=== PATIENT | male | born 1945 | race Caucasian/White ===

== ENCOUNTER 2016-09-09 19:43 | Inpatient (IN) | payer MEDICARE ==
[~2016-09-09] VITALS: Ht 185.4 cm; Wt 113.2 kg
[~2016-09-09 19:43] MED LIST: ASPI-650 PO; CIPR500T87 PO; LOSA50TA6 PO; MULT-208 PO; OXYC-302 PO; SULF1TAB23 PO
[2016-09-09] MEDS ORDERED: ONDANSETRON 2MG/ML, 2ML IVPush ONE (20:30)
[2016-09-09] MEDS ORDERED: SODIUM CHLORIDE 0.9% 1,000ML IVBOLUS ONE (20:30)
[2016-09-09] MEDS ORDERED: PANTOPRAZOLE 40 MG IV IVP ONE (20:30)
[2016-09-09] MEDS ORDERED: LORazepam 2 MG/ML, 1ML IVPush ONE (20:30)
[2016-09-09] MEDS ORDERED: MORPHINE SULFATE 4 MG/ML, 1ML IVPush PRN (20:30)
[2016-09-09] MEDS ORDERED: PANTOPRAZOLE 40 MG IV ONE (20:47)
[2016-09-09] MEDS ORDERED: ONDANSETRON 2MG/ML, 2ML ONE (20:47)
[2016-09-09] MEDS ORDERED: LORazepam 2 MG/ML, 1ML ONE (20:47)
[2016-09-09] MEDS ORDERED: MORPHINE SULFATE 4 MG/ML, 1ML ONE (20:57)
[2016-09-09 20:59] LABS: ASPARTATE AMINO TRANSFERASE 99 U/L (15-37); BLOOD UREA NITROGEN 24 mg/dL (7-18)
[2016-09-09 21:04] LABS: IS PT STATUS REG ER OR PRE ER? YES
[2016-09-09] MEDS ORDERED: D5%-0.45% NACL 1,000 ML IV ONE (21:30)
[2016-09-09] MEDS ORDERED: OMNIPAQUE 350 MG/ML, 100ML BOTTLE ONE (21:52)
[2016-09-09] MEDS: ENOXAPARIN 40 MG/0.4 ML SQ SCH (23:00)
[2016-09-09] MEDS ORDERED: THIAMINE 200 MG in SODIUM CHLORIDE 0.9% 50 ML IV ONE (23:00)
[2016-09-09] MEDS ORDERED: FAMOTIDINE 20 MG/2 ML IVPush SCH (23:00)
[2016-09-09] MEDS ORDERED: ONDANSETRON 2MG/ML, 2ML IVPush PRN (23:00)
[2016-09-10] MEDS ORDERED: MORPHINE SULFATE 4 MG/ML, 1ML IVPush PRN
[2016-09-10] MEDS: PROMETHAZINE 25 MG/ML, 1ML IM PRN ×2 (00:06→06:00)
[2016-09-10 00:14] VITALS: BP 137/86
[2016-09-10 02:05] VITALS: BP 137/77
[2016-09-10] MEDS: ONDANSETRON 2MG/ML, 2ML IVPush PRN ×3 (04:13→21:57)
[2016-09-10] MEDS: MORPHINE SULFATE 4 MG/ML, 1ML IVPush PRN ×4 (04:14→18:16)
[2016-09-10 05:35] LABS: BLOOD UREA NITROGEN 22 mg/dL (7-18)
[2016-09-10 05:38] LABS: ASPARTATE AMINO TRANSFERASE 338 U/L (15-37)
[2016-09-10] MEDS: POTASSIUM CHLORIDE 20 MEQ, MAGNESIUM SULFATE 2 GM, THIAMINE 100 MG, MVI ADULT 10 ML, FO... IV SCH (07:54)
[2016-09-10 08:15] VITALS: BP 122/75
[2016-09-10] MEDS: CYANOCOBALAMIN 1,000 MCG TABLET PO SCH (09:20)
[2016-09-10] MEDS: PANTOPRAZOLE 40 MG IV IVPush SCH ×2 (09:20→21:59)
[2016-09-10] MEDS: SUCRALFATE 1 GM/10 ML UDC PO SCH ×4 (09:20→21:59)
[2016-09-10] MEDS ORDERED: OMNIPAQUE 350 MG/ML, 100ML BOTTLE ONE (13:55)
[2016-09-10 14:01] VITALS: BP 138/82
[2016-09-10 18:27] VITALS: BP 128/79
[2016-09-10] MEDS: NS + 20MEQ KCL 1,000 ML IV SCH (22:00)
[2016-09-10] MEDS: ENOXAPARIN 40 MG/0.4 ML SQ SCH (22:04)
[2016-09-10] MEDS: LORazepam 2 MG/ML, 1ML IVPush PRN (22:04)
[2016-09-11] MEDS: MORPHINE SULFATE 4 MG/ML, 1ML IVPush PRN ×3 (00:02→10:49)
[2016-09-11 01:36] VITALS: BP 121/77
[2016-09-11] MEDS: LORazepam 2 MG/ML, 1ML IVPush PRN ×4 (02:23→22:28)
[2016-09-11 04:45] LABS: BLOOD UREA NITROGEN 22 mg/dL (7-18)
[2016-09-11 05:14] LABS: ASPARTATE AMINO TRANSFERASE 378 U/L (15-37)
[2016-09-11 05:17] LABS: ACETAMINOPHEN < 2 mcg/mL (10-30)
[2016-09-11] MEDS: ONDANSETRON 2MG/ML, 2ML IVPush PRN ×4 (06:32→22:28)
[2016-09-11] MEDS: SUCRALFATE 1 GM/10 ML UDC PO SCH ×4 (07:00→22:28)
[2016-09-11 08:26] VITALS: BP 118/74
[2016-09-11] MEDS: PANTOPRAZOLE 40 MG IV IVPush SCH ×2 (08:30→22:28)
[2016-09-11] MEDS: CYANOCOBALAMIN 1,000 MCG TABLET PO SCH (09:00)
[2016-09-11] MEDS: POTASSIUM CHLORIDE 20 MEQ, MAGNESIUM SULFATE 2 GM, THIAMINE 100 MG, MVI ADULT 10 ML, FO... IV SCH (10:49)
[2016-09-11] MEDS ORDERED: ONDANSETRON 2MG/ML, 2ML IVPush PRN (14:30)
[2016-09-11] MEDS ORDERED: OXYcodone 5 MG/5 ML ORAL.SOL UDC PO PRN (14:30)
[2016-09-11] MEDS ORDERED: FENTANYL PF 100 MCG/2ML IV PRN (14:30)
[2016-09-11] MEDS ORDERED: morphine SULFATE 10 MG/ML, 1ML IV PRN (14:30)
[2016-09-11] MEDS ORDERED: PROMETHAZINE 25 MG/ML, 1ML IV PRN (14:30)
[2016-09-11] MEDS ORDERED: MIDAZOLAM 1 MG/ML, 2ML IV PRN (14:30)
[2016-09-11] MEDS ORDERED: hydrALAzine 20 MG/ML, 1ML IV PRN (14:30)
[2016-09-11] MEDS ORDERED: LABETALOL 5MG/ML, 20ML IV PRN (14:30)
[2016-09-11] MEDS ORDERED: ALBUTEROL/IPRATROPIUM 2.5MG/0.5MG, 3 ML NPPB PRN (14:30)
[2016-09-11 14:36] VITALS: BP 154/94
[2016-09-11 18:35] VITALS: BP 110/70
[2016-09-11] MEDS: NS + 20MEQ KCL 1,000 ML IV SCH (21:00)
[2016-09-11 22:07] VITALS: BP 96/65
[2016-09-11 22:37] VITALS: BP 98/65
[2016-09-12 05:16] LABS: ASPARTATE AMINO TRANSFERASE 122 U/L (15-37); BLOOD UREA NITROGEN 26 mg/dL (7-18)
[2016-09-12] MEDS: SUCRALFATE 1 GM/10 ML UDC PO SCH ×4 (07:00→21:09)
[2016-09-12] MEDS ORDERED: PANT40TA3 PO (07:48)
[2016-09-12] MEDS ORDERED: LORA-446 PO (07:48)
[2016-09-12] MEDS ORDERED: ONDA4TAB10 PO (07:48)
[2016-09-12 08:25] VITALS: BP 121/68
[2016-09-12] MEDS: CYANOCOBALAMIN 1,000 MCG TABLET PO SCH (09:00)
[2016-09-12 09:14] LABS: HEPATITIS C VIRUS ANTIBODY Nonreactive (Nonreactive)
[2016-09-12] MEDS: LORazepam 2 MG/ML, 1ML IVPush PRN ×3 (11:07→21:11)
[2016-09-12] MEDS: PANTOPRAZOLE 40 MG IV IVPush SCH ×2 (11:07→21:09)
[2016-09-12] MEDS: ONDANSETRON 2MG/ML, 2ML IVPush PRN ×3 (11:07→21:10)
[2016-09-12] MEDS: POTASSIUM CHLORIDE 20 MEQ, MAGNESIUM SULFATE 2 GM, THIAMINE 100 MG, MVI ADULT 10 ML, FO... IV SCH (12:00)
[2016-09-12] MEDS ORDERED: FENTANYL PF 100 MCG/2ML ONE (13:07)
[2016-09-12] MEDS ORDERED: EPINEPHRINE SYRINGE 0.1 MG/ML, 10ML ONE (13:16)
[2016-09-12] MEDS ORDERED: ONDANSETRON 2MG/ML, 2ML IVPush PRN (13:30)
[2016-09-12] MEDS ORDERED: ONDANSETRON 2MG/ML, 2ML ONE (13:32)
[2016-09-12] MEDS ORDERED: FENTANYL PF 100 MCG/2ML IV PRN (14:00)
[2016-09-12 14:51] VITALS: BP 124/72
[2016-09-12] MEDS ORDERED: PROPOFOL 10 MG/ML, 20ML ONE (15:11)
[2016-09-12] MEDS: NS + 20MEQ KCL 1,000 ML IV SCH (20:00)
[2016-09-12 21:06] VITALS: BP 111/73
[2016-09-12 23:56] LABS: PATH.CAST-FLAG NOT PRESENT; SPERM-FLAG NOT PRESENT; SRC-FLAG NOT PRESENT; XTAL-FLAG NOT PRESENT; YLC-FLAG NOT PRESENT
[2016-09-13] VITALS (8 sets, daily range): BP systolic 112–138; BP diastolic 72–76
[2016-09-13] MEDS: MORPHINE SULFATE 4 MG/ML, 1ML IVPush PRN (04:17)
[2016-09-13] MEDS: ONDANSETRON 2MG/ML, 2ML IVPush PRN ×2 (04:36→10:19)
[2016-09-13] MEDS: LORazepam 2 MG/ML, 1ML IVPush PRN (04:37)
[2016-09-13 05:32] LABS: ASPARTATE AMINO TRANSFERASE 58 U/L (15-37); BLOOD UREA NITROGEN 18 mg/dL (7-18)
[2016-09-13] MEDS: CYANOCOBALAMIN 1,000 MCG TABLET PO SCH (08:51)
[2016-09-13] MEDS: NS + 20MEQ KCL 1,000 ML IV SCH (08:51)
[2016-09-13] MEDS: PANTOPRAZOLE 40 MG IV IVPush SCH (08:51)
[2016-09-13] MEDS: SUCRALFATE 1 GM/10 ML UDC PO SCH (08:51)
[2016-09-13] MEDS ORDERED: CEFD300C37 PO (09:21)
== END 2016-09-13 10:38 | disposition home or self-care (01) | DRG 344 ==
LOC: ED 22:46 → EDIP 22:50 → 4NOR 23:27 → 4WST 09-10 05:37
PROVIDERS: ADMIT Internal Medicine
PROC: 0W3P8ZZ Control Bleeding in Gastrointestinal Tract, Via Natural or Artificial Opening Endoscopic (ICD-10-PCS; principal; 2016-09-11 14:00)
PROC: 0D5A8ZZ Destruction of Jejunum, Via Natural or Artificial Opening Endoscopic (ICD-10-PCS; 2016-09-12)
PROC: 0D568ZZ Destruction of Stomach, Via Natural or Artificial Opening Endoscopic (ICD-10-PCS; 2016-09-12)
DX: K28.0 Acute gastrojejunal ulcer with hemorrhage (principal); E43 Unspecified severe protein-calorie malnutrition; K85.20 Alcohol induced acute pancreatitis without necrosis or infection; E87.2 Acidosis; I45.2 Bifascicular block; F10.229 Alcohol dependence with intoxication, unspecified; D18.03 Hemangioma of intra-abdominal structures; D53.9 Nutritional anemia, unspecified; D69.6 Thrombocytopenia, unspecified; D75.89 Other specified diseases of blood and blood-forming organs; Z68.32 Body mass index [BMI] 32.0-32.9, adult; E53.8 Deficiency of other specified B group vitamins; E86.0 Dehydration; I10 Essential (primary) hypertension; I77.819 Aortic ectasia, unspecified site; K20.9 Esophagitis, unspecified; K27.4 Chronic or unspecified peptic ulcer, site unspecified, with hemorrhage; K52.9 Noninfective gastroenteritis and colitis, unspecified; K70.10 Alcoholic hepatitis without ascites; Z82.49 Family history of ischemic heart disease and other diseases of the circulatory system; Z83.3 Family history of diabetes mellitus; Z85.828 Personal history of other malignant neoplasm of skin; Z96.659 Presence of unspecified artificial knee joint; Z98.84 Bariatric surgery status; R31.0 Gross hematuria; I85.10 Secondary esophageal varices without bleeding
CPT/HCPCS: 36415; 74170; 74177; 76770; 80053; 80074; 80307; 81001; 81003; 82010; 82105; 82140; 82607; 82746; 83690; 83735; 84100; 84443; 84484; 85014; 85018; 85025; 85610; 86677; 86850; 86900; 86923; 87077; 87086; 93005; 96361; 96374; 96375; B4087; J2405; J2550; J2704; J3010; J3411; J3475; J3480; J7042; Q9967; C9113; J2060; J7030; P9016

== ENCOUNTER 2016-09-14 02:56 | Inpatient (IN) | payer MEDICARE ==
[2016-09-14] VITALS (17 sets, daily range): BP systolic 100–154; BP diastolic 54–138
[~2016-09-14] VITALS: Ht 185.4 cm; Wt 109.3 kg
[~2016-09-14 02:56] MED LIST changes: +CEFD300C37 PO; +LORA-446 PO; +ONDA4TAB10 PO; +PANT40TA3 PO
[2016-09-14] MEDS ORDERED: PANTOPRAZOLE 80 MG in SODIUM CHLORIDE 0.9% 50 ML IVPB ONE (03:26)
[2016-09-14] MEDS ORDERED: SODIUM CHLORIDE 0.9% 1,000ML IVBOLUS ONE (03:30)
[2016-09-14 03:56] LABS: ASPARTATE AMINO TRANSFERASE 38 U/L (15-37); BLOOD UREA NITROGEN 19 mg/dL (7-18)
[2016-09-14 04:10] LABS: IS PT STATUS REG ER OR PRE ER? YES
[2016-09-14] MEDS ORDERED: PROMETHAZINE 25 MG/ML, 1ML IM PRN (05:00)
[2016-09-14] MEDS ORDERED: ONDANSETRON 2MG/ML, 2ML IVPush PRN ×3 (05:00→11:00)
[2016-09-14] MEDS ORDERED: SODIUM CHLORIDE 0.9% 1,000 ML IV SCH (05:11)
[2016-09-14] MEDS ORDERED: TRAZODONE 50MG TABLET PO PRN (05:30)
[2016-09-14] MEDS ORDERED: BISACODYL 10 MG SUPP PR PRN (05:30)
[2016-09-14] MEDS ORDERED: LABETALOL 5MG/ML, 20ML IVPush PRN ×2 (05:30→18:56)
[2016-09-14] MEDS ORDERED: DOCUSATE 100 MG CAPSULE PO PRN (05:30)
[2016-09-14] MEDS ORDERED: ACETAMINOPHEN 325 MG TABLET PO PRN (05:30)
[2016-09-14] MEDS ORDERED: POLYETHYLENE GLYCOL 17 GM PACKET PO PRN (05:30)
[2016-09-14] MEDS: THIAMINE 100MG TABLET PO SCH (08:16)
[2016-09-14] MEDS: FOLIC ACID 1 MG TABLET PO SCH (08:16)
[2016-09-14] MEDS: ONDANSETRON 2MG/ML, 2ML IVPush PRN ×3 (08:29→21:59)
[2016-09-14] MEDS ORDERED: PANTOPRAZOLE 40 MG IV IVPush SCH ×2 (09:00→13:30)
[2016-09-14] MEDS ORDERED: LABETALOL 5MG/ML, 20ML IV PRN ×2 (10:30→11:00)
[2016-09-14] MEDS ORDERED: PROMETHAZINE 25 MG/ML, 1ML IV PRN ×2 (10:30→11:00)
[2016-09-14] MEDS ORDERED: EPHEDRINE 50 MG/ML, 1ML IVPush PRN ×2 (10:30→11:00)
[2016-09-14] MEDS ORDERED: FENTANYL PF 100 MCG/2ML IV PRN ×2 (10:30→11:00)
[2016-09-14] MEDS ORDERED: hydrALAzine 20 MG/ML, 1ML IV PRN ×2 (10:30→11:00)
[2016-09-14] MEDS ORDERED: HYDROmorphone 1 MG/ML, 1ML IV PRN (11:00)
[2016-09-14] MEDS ORDERED: PROMETHAZINE 25 MG/ML, 1ML ONE (11:21)
[2016-09-14] MEDS ORDERED: HYDROmorphone 1 MG/ML, 1ML ONE (11:46)
[2016-09-14] MEDS: HYDROmorphone 1 MG/ML, 1ML IV PRN ×2 (11:48→12:03)
[2016-09-14] MEDS ORDERED: ONDANSETRON 2MG/ML, 2ML ONE (12:01)
[2016-09-14] MEDS ORDERED: EPINEPHRINE SYRINGE 0.1 MG/ML, 10ML ONE (12:04)
[2016-09-14] MEDS ORDERED: FENTANYL PF 100 MCG/2ML ONE (12:11)
[2016-09-14] MEDS ORDERED: PANTOPRAZOLE 40 MG IV IVPush ONE (14:00)
[2016-09-14 14:01] LABS: DIFF TOTAL CELLS COUNTED 100 CELL DIFF
[2016-09-14 14:04] LABS: VERIFY COUNTS? YES
[2016-09-14 14:05] LABS: ANISOCYTOSIS 1+; OVALOCYTES 1+
[2016-09-14 14:06] LABS: POLYCHROMASIA 1+
[2016-09-14] MEDS ORDERED: PROPOFOL 10 MG/ML, 50ML ONE (16:57)
[2016-09-14] MEDS ORDERED: PHENYLEPHRINE 10 MG/ML ONE (16:57)
[2016-09-14] MEDS: morphine SULFATE 10 MG/ML, 1ML IVPush PRN (17:59)
[2016-09-14] MEDS ORDERED: PANTOPRAZOLE 80 MG in SODIUM CHLORIDE 0.9% 50 ML IV SCH (21:00)
[2016-09-14] MEDS: SUCRALFATE 1 GM/10 ML UDC PO SCH (21:59)
[2016-09-14] MEDS: PANTOPRAZOLE 80 MG in SODIUM CHLORIDE 0.9% 100 ML IV SCH (21:59)
[2016-09-15 04:00] VITALS: BP 109/62
[2016-09-15] MEDS ORDERED: SODIUM CHLORIDE 0.9% 1,000 ML IV SCH (05:11)
[2016-09-15 06:15] LABS: ASPARTATE AMINO TRANSFERASE 44 U/L (15-37); BLOOD UREA NITROGEN 12 mg/dL (7-18)
[2016-09-15 07:00] LABS: DIFF TOTAL CELLS COUNTED 100 CELL DIFF
[2016-09-15] MEDS: ONDANSETRON 2MG/ML, 2ML IVPush PRN ×4 (07:02→21:23)
[2016-09-15] MEDS: SUCRALFATE 1 GM/10 ML UDC PO SCH ×4 (07:03→21:23)
[2016-09-15 07:04] LABS: ANISOCYTOSIS 1+; POLYCHROMASIA 1+
[2016-09-15 07:05] LABS: OVALOCYTES 1+; VERIFY COUNTS? YES
[2016-09-15] MEDS ORDERED: POTASSIUM CHLORIDE 20 MEQ PACKET PO SCH (07:30)
[2016-09-15] MEDS: THIAMINE 100MG TABLET PO SCH (09:00)
[2016-09-15] MEDS: FOLIC ACID 1 MG TABLET PO SCH (09:00)
[2016-09-15] MEDS: PANTOPRAZOLE 80 MG in SODIUM CHLORIDE 0.9% 100 ML IV SCH ×2 (09:01→21:24)
[2016-09-15 21:41] VITALS: BP 125/80
[2016-09-16 02:08] VITALS: BP 114/67
[2016-09-16 05:09] LABS: BLOOD UREA NITROGEN 9 mg/dL (7-18)
[2016-09-16] MEDS ORDERED: SODIUM CHLORIDE 0.9% 1,000 ML IV SCH (05:11)
[2016-09-16 06:40] VITALS: BP 125/76
[2016-09-16] MEDS ORDERED: POTASSIUM CHLORIDE 40 MEQ in SODIUM CHLORIDE 0.9% 500 ML IV ONE (07:00)
[2016-09-16] MEDS: FOLIC ACID 1 MG TABLET PO SCH (08:03)
[2016-09-16] MEDS: SUCRALFATE 1 GM/10 ML UDC PO SCH ×4 (08:03→22:11)
[2016-09-16] MEDS: THIAMINE 100MG TABLET PO SCH (08:03)
[2016-09-16] MEDS: ONDANSETRON 2MG/ML, 2ML IVPush PRN ×3 (08:09→19:44)
[2016-09-16] MEDS: PANTOPRAZOLE 80 MG in SODIUM CHLORIDE 0.9% 100 ML IV SCH ×2 (09:50→22:11)
[2016-09-16 10:00] VITALS: BP 93/57
[2016-09-16 13:39] VITALS: BP 113/72
[2016-09-16 15:50] VITALS: BP 106/65
[2016-09-16] MEDS ORDERED: PROMETHAZINE 25 MG/ML, 1ML IM PRN (16:00)
[2016-09-16] MEDS ORDERED: SUCCINYLCHOLINE 20 MG/ML, 10ML ONE (16:35)
[2016-09-16] MEDS ORDERED: FENTANYL PF 100 MCG/2ML ONE (16:35)
[2016-09-16] MEDS ORDERED: ONDANSETRON 2MG/ML, 2ML ONE (16:35)
[2016-09-16] MEDS ORDERED: PROPOFOL 10 MG/ML, 20ML ONE (16:35)
[2016-09-16] MEDS ORDERED: PHENYLEPHRINE 10 MG/ML ONE (16:35)
[2016-09-16] MEDS ORDERED: HYDROmorphone 1 MG/ML, 1ML IV PRN (18:00)
[2016-09-16] MEDS ORDERED: MEPERIDINE/PF 25MG/0.5ML IVPush PRN (18:00)
[2016-09-16] MEDS ORDERED: MIDAZOLAM 1 MG/ML, 2ML IV PRN (18:00)
[2016-09-16] MEDS ORDERED: ONDANSETRON 2MG/ML, 2ML IVPush PRN (18:00)
[2016-09-16] MEDS ORDERED: LABETALOL 5MG/ML, 20ML IV PRN (18:00)
[2016-09-16] MEDS ORDERED: ALBUTEROL/IPRATROPIUM 2.5MG/0.5MG, 3 ML NPPB PRN (18:00)
[2016-09-16] MEDS ORDERED: PROMETHAZINE 25 MG/ML, 1ML IV PRN (18:00)
[2016-09-16] MEDS ORDERED: FENTANYL PF 100 MCG/2ML IV PRN (18:00)
[2016-09-16] MEDS ORDERED: EPHEDRINE 50 MG/ML, 1ML IVPush PRN (18:00)
[2016-09-16] MEDS ORDERED: LORazepam 2 MG/ML, 1ML IV PRN ×5 (19:30)
[2016-09-16] MEDS: morphine SULFATE 10 MG/ML, 1ML IVPush PRN (19:33)
[2016-09-16] MEDS: SODIUM CHLORIDE 0.9% 1,000 ML IV SCH (19:36)
[2016-09-17 04:53] LABS: BLOOD UREA NITROGEN 16 mg/dL (7-18)
[2016-09-17] MEDS: SUCRALFATE 1 GM/10 ML UDC PO SCH ×3 (06:23→20:53)
[2016-09-17] MEDS ORDERED: TEMAZEPAM 30 MG CAPSULE PO PRN (09:30)
[2016-09-17] MEDS: SODIUM CHLORIDE 0.9% 1,000 ML IV SCH ×2 (10:52→22:05)
[2016-09-17] MEDS: ONDANSETRON 2MG/ML, 2ML IVPush PRN ×2 (10:52→15:28)
[2016-09-17] MEDS: PANTOPRAZOLE 80 MG in SODIUM CHLORIDE 0.9% 100 ML IV SCH (10:52)
[2016-09-17] MEDS ORDERED: POTASSIUM CHLORIDE 10% 40 MEQ/30 ML UDC PO ONE (13:00)
[2016-09-17] MEDS ORDERED: EPINEPHRINE SYRINGE 0.1 MG/ML, 10ML ONE (13:13)
[2016-09-17 13:30] LABS: PATH.CAST-FLAG NOT PRESENT; SPERM-FLAG NOT PRESENT; SRC-FLAG NOT PRESENT; XTAL-FLAG NOT PRESENT; YLC-FLAG NOT PRESENT
[2016-09-17] MEDS: THIAMINE 100MG TABLET PO SCH (15:27)
[2016-09-17] MEDS: FOLIC ACID 1 MG TABLET PO SCH (15:27)
[2016-09-17] MEDS: PANTOPRAZOLE 40 MG IV IVPush SCH (20:53)
[2016-09-17 22:25] LABS: BLOOD UREA NITROGEN 11 mg/dL (7-18)
[2016-09-18] MEDS: SODIUM CHLORIDE 0.9% 1,000 ML IV SCH (03:50)
[2016-09-18 04:34] VITALS: BP 116/68
[2016-09-18 04:48] LABS: BLOOD UREA NITROGEN 12 mg/dL (7-18)
[2016-09-18] MEDS: SUCRALFATE 1 GM/10 ML UDC PO SCH ×4 (05:32→20:52)
[2016-09-18] MEDS: ONDANSETRON 2MG/ML, 2ML IVPush PRN ×2 (05:32→20:53)
[2016-09-18] MEDS: morphine SULFATE 10 MG/ML, 1ML IVPush PRN ×2 (05:32→20:52)
[2016-09-18] MEDS: FOLIC ACID 1 MG TABLET PO SCH (08:10)
[2016-09-18] MEDS: THIAMINE 100MG TABLET PO SCH (08:10)
[2016-09-18] MEDS: PANTOPRAZOLE 40 MG IV IVPush SCH (08:10)
[2016-09-18] MEDS ORDERED: PANTOPRAZOLE 40 MG IV IVPush SCH (09:00)
[2016-09-18 16:00] VITALS: BP 133/79
[2016-09-18] MEDS ORDERED: PANTOPRAZOLE 80 MG in SODIUM CHLORIDE 0.9% 50 ML IV ONE (16:30)
[2016-09-18] MEDS: PANTOPRAZOLE 80 MG in SODIUM CHLORIDE 0.9% 100 ML IV SCH (16:51)
[2016-09-18 19:18] VITALS: BP 118/73
[2016-09-19 02:31] VITALS: BP 116/72
[2016-09-19] MEDS: PANTOPRAZOLE 80 MG in SODIUM CHLORIDE 0.9% 100 ML IV SCH ×3 (03:18→23:25)
[2016-09-19] MEDS: SUCRALFATE 1 GM/10 ML UDC PO SCH ×4 (05:38→20:47)
[2016-09-19 06:41] VITALS: BP 114/76
[2016-09-19] MEDS: FOLIC ACID 1 MG TABLET PO SCH (08:50)
[2016-09-19] MEDS: ONDANSETRON 2MG/ML, 2ML IVPush PRN (08:50)
[2016-09-19] MEDS: THIAMINE 100MG TABLET PO SCH (08:50)
[2016-09-19] MEDS: morphine SULFATE 10 MG/ML, 1ML IVPush PRN (08:51)
[2016-09-19 12:45] VITALS: BP 92/54
[2016-09-19 19:00] VITALS: BP 112/67
[2016-09-20] MEDS: morphine SULFATE 10 MG/ML, 1ML IVPush PRN (02:53)
[2016-09-20 02:57] VITALS: BP 112/72
[2016-09-20 05:33] LABS: BLOOD UREA NITROGEN 9 mg/dL (7-18)
[2016-09-20 05:37] LABS: ASPARTATE AMINO TRANSFERASE 20 U/L (15-37)
[2016-09-20] MEDS: SUCRALFATE 1 GM/10 ML UDC PO SCH ×4 (06:00→20:18)
[2016-09-20] MEDS: FOLIC ACID 1 MG TABLET PO SCH (07:45)
[2016-09-20] MEDS: THIAMINE 100MG TABLET PO SCH (07:46)
[2016-09-20 08:24] VITALS: BP 117/82
[2016-09-20] MEDS ORDERED: LACTATED RINGERS 1,000 ML IV SCH (09:06)
[2016-09-20] MEDS ORDERED: LIDOCAINE 1%, 2ML SQ PRN (09:30)
[2016-09-20] MEDS ORDERED: PROPOFOL 10 MG/ML, 50ML ONE (11:12)
[2016-09-20] MEDS ORDERED: FENTANYL PF 100 MCG/2ML IV PRN (12:00)
[2016-09-20 13:09] VITALS: BP 133/79
[2016-09-20] MEDS ORDERED: OMEPRAZOLE 20 MG CAPSULE.DR PO ONE (13:30)
[2016-09-20 18:40] VITALS: BP 129/79
[2016-09-20] MEDS ORDERED: RANITIDINE 15 MG/ML ORAL SOL PO SCH (21:00)
[2016-09-21 02:12] VITALS: BP 114/74
[2016-09-21] MEDS: SUCRALFATE 1 GM/10 ML UDC PO SCH ×2 (06:29→10:37)
[2016-09-21 07:09] LABS: BLOOD UREA NITROGEN 7 mg/dL (7-18)
[2016-09-21] MEDS ORDERED: OMEPRAZOLE 20 MG CAPSULE.DR PO SCH (07:30)
[2016-09-21 07:41] VITALS: BP 144/74
[2016-09-21] MEDS: THIAMINE 100MG TABLET PO SCH (07:48)
[2016-09-21] MEDS: FOLIC ACID 1 MG TABLET PO SCH (07:48)
[2016-09-21] MEDS ORDERED: RANI300C PO (10:40)
[2016-09-21] MEDS ORDERED: OMEP-110 PO (10:40)
[2016-09-21 12:09] VITALS: BP 113/69
== END 2016-09-21 13:19 | disposition home or self-care (01) | DRG 919 ==
LOC: ED 03:42 → EDIP 04:55 → ICU 07:09 → 3NW 09-15 19:00 → CCU 09-16 16:11 → 4NOR 09-18 16:30
PROVIDERS: ADMIT Internal Medicine; ATTEND Internal Medicine
PROC: 0W3P8ZZ Control Bleeding in Gastrointestinal Tract, Via Natural or Artificial Opening Endoscopic (ICD-10-PCS; 2016-09-14)
PROC: 30233N1 Transfusion of Nonautologous Red Blood Cells into Peripheral Vein, Percutaneous Approach (ICD-10-PCS; 2016-09-14)
PROC: 3E0G8GC Introduction of Other Therapeutic Substance into Upper GI, Via Natural or Artificial Opening Endoscopic (ICD-10-PCS; principal; 2016-09-14 08:00)
PROC: 0W3P8ZZ Control Bleeding in Gastrointestinal Tract, Via Natural or Artificial Opening Endoscopic (ICD-10-PCS; 2016-09-16)
PROC: 3E0G8GC Introduction of Other Therapeutic Substance into Upper GI, Via Natural or Artificial Opening Endoscopic (ICD-10-PCS; 2016-09-16)
PROC: 30233N1 Transfusion of Nonautologous Red Blood Cells into Peripheral Vein, Percutaneous Approach (ICD-10-PCS; 2016-09-16)
PROC: 0DJ08ZZ Inspection of Upper Intestinal Tract, Via Natural or Artificial Opening Endoscopic (ICD-10-PCS; 2016-09-20)
DX: K91.840 Postprocedural hemorrhage of a digestive system organ or structure following a digestive system procedure (principal); K28.4 Chronic or unspecified gastrojejunal ulcer with hemorrhage; D62 Acute posthemorrhagic anemia; D69.3 Immune thrombocytopenic purpura; I48.91 Unspecified atrial fibrillation; I10 Essential (primary) hypertension; D18.03 Hemangioma of intra-abdominal structures; E66.01 Morbid (severe) obesity due to excess calories; F10.10 Alcohol abuse, uncomplicated; E88.09 Other disorders of plasma-protein metabolism, not elsewhere classified; H91.90 Unspecified hearing loss, unspecified ear; I45.10 Unspecified right bundle-branch block; Z68.31 Body mass index [BMI] 31.0-31.9, adult; Z82.49 Family history of ischemic heart disease and other diseases of the circulatory system; Z83.3 Family history of diabetes mellitus; Z85.828 Personal history of other malignant neoplasm of skin; Z90.49 Acquired absence of other specified parts of digestive tract; Z98.84 Bariatric surgery status; Z88.8 Allergy status to other drugs, medicaments and biological substances
CPT/HCPCS: 36415; 36430; 80048; 80053; 80307; 81001; 82140; 82962; 83690; 84484; 85014; 85018; 85025; 85384; 85610; 85730; 86850; 86900; 86923; 87077; 87081; 87086; 87186; 93005; 96365; J1170; J2405; J2550; J2704; J3010; J3480; J3490; C9113; J0330; J2060; J2270; J2370; J7030; J7040; J7120; P9016